=== PATIENT | male | born 1960 | race Two or more races ===

== ENCOUNTER 2017-02-18 14:44 | Emergency (ER) | payer SELFPAY ==
[~2017-02-18] VITALS: Ht 180.3 cm; Wt 83.0 kg
[2017-02-18 15:10] VITALS: BP 158/104
[2017-02-18] MEDS ORDERED: KETOROLAC TROMETH 60MG/2ML VIAL IM ONE (16:30)
== END 2017-02-18 17:15 | disposition home or self-care (01) ==
LOC: ER 14:44
DX: S22.42XA Multiple fractures of ribs, left side, initial encounter for closed fracture (principal); W11.XXXA Fall on and from ladder, initial encounter; Y93.89 Activity, other specified; Y92.89 Other specified places as the place of occurrence of the external cause; Y99.8 Other external cause status
CPT/HCPCS: 71101; 96372; 99284; J1885

== ENCOUNTER 2017-05-15 00:13 | Emergency (ER) | payer SELFPAY ==
[~2017-05-15] VITALS: Ht 180.3 cm; Wt 89.4 kg
[2017-05-15] MEDS ORDERED: cloNIDine HCL 0.1 MG TAB PO ONE (00:30)
[2017-05-15 01:54] VITALS: BP 124/90
== END 2017-05-15 02:44 | disposition home or self-care (01) ==
LOC: ER 00:13
DX: S00.01XA Abrasion of scalp, initial encounter (principal); I10 Essential (primary) hypertension; Z91.14 Patient's other noncompliance with medication regimen; W18.39XA Other fall on same level, initial encounter; Y93.89 Activity, other specified; Y92.89 Other specified places as the place of occurrence of the external cause; Y99.8 Other external cause status
CPT/HCPCS: 70450; 99284; J7030

== ENCOUNTER 2017-08-14 14:55 | Inpatient (IN) | payer SELFPAY ==
[2017-08-13 23:15] VITALS: BP 180/100
[~2017-08-14] VITALS: Ht 180.3 cm; Wt 48.8 kg
[2017-08-14 15:19] LABS: Basophils # (auto) 0 uL; Basophils % (auto) 0.3 % (0.0-2.0); Eosinophils # (auto) 0.1 uL; Eosinophils % (auto) 0.7 % (0.0-7.0); Hematocrit 47.8 % (41.0-53.0); Hemoglobin 16.5 g/dL (13.5-17.5); Lymphocytes # (auto) 1.5 uL; Lymphocytes % (auto) 19.5 % (10.0-50.0); Mean Corpuscular Hemoglobin 34.7 pg (28.0-32.0); Mean Corpuscular Hgb Conc. 34.5 g/dL (32.0-36.0); Mean Corpuscular Volume 100.6 fL (80.0-100.0); Monocytes # (auto) 0.7 uL; Monocytes % (auto) 9.7 % (0.0-12.0); Neutrophils # (auto) 5.2 uL; Neutrophils % (auto) 69.8 % (37.0-80.0); Nucleated Red Blood Cells % 0.1 %; Platelet Count (auto) 174 10^3/uL (140-450); Red Cell Distribution Width 13.4 % (11.8-14.3); White Blood Cell 7.5 10^3/uL (4.4-10.8)
[2017-08-14 15:43] LABS: Albumin 3.5 g/dL (3.4-5.0); Alkaline Phosphatase 99 U/L (45-117); Anion Gap 14 (5-15); Aspartate Aminotransferase 85 U/L (15-37); BUN/Creatinine Ratio 12.1; Bilirubin, Total 0.6 mg/dL (0.2-1.0); Blood Urea Nitrogen 11 mg/dL (7-18); Calcium 8.2 mg/dL (8.5-10.1); Carbon Dioxide 21 mmol/L (21-32); Chloride 100 mmol/L (98-107); GFR African American 111 mL/min; GFR Non-African American 92 mL/min; Glucose 92 mg/dL (74-106); Magnesium 2.3 mg/dL (1.6-2.6); Potassium 3.8 mmol/L (3.5-5.1); Sodium 135 mmol/L (136-145); Total Protein 7.3 g/dL (6.4-8.2)
[2017-08-14] MEDS ORDERED: ONDANSETRON HCL 4 MG/2 ML VIAL IV ONE (17:45)
[2017-08-14] MEDS ORDERED: ASPirin 81 mg TAB PO ONE (17:45)
[2017-08-14] MEDS ORDERED: SODIUM CHLORIDE 0.9% 1,000 ML IV ONE (17:45)
[2017-08-14] MEDS ORDERED: HYDROmorphone HCL 2 MG/ML VL IV ONE (17:45)
[2017-08-14] MEDS ORDERED: ACETAMINOPHEN 325 MG TAB PO PRN (21:45)
[2017-08-14] MEDS ORDERED: MORPHINE SULF INJ 2 MG/ML SYRINGE 1ML IV PRN (21:45)
[2017-08-14] MEDS ORDERED: TEMAZEPAM 15 MG CAP PO PRN (21:45)
[2017-08-14] MEDS ORDERED: ONDANSETRON HCL 4 MG/2 ML VIAL IV PRN (21:45)
[2017-08-14] MEDS ORDERED: HYDROmorphone HCL 2 MG/ML VL IV PRN (21:45)
[2017-08-14] MEDS ORDERED: HYDROcodone-ACET 5/325MG TAB PO PRN (21:45)
[2017-08-14] MEDS ORDERED: NITROGLYCERIN 0.4 MG SL TAB SL PRN (21:45)
[2017-08-14] MEDS: FAMOTIDINE 20 MG TAB PO SCH (22:17)
[2017-08-14] MEDS: METOPROLOL TARTRATE 25 MG TAB PO SCH (22:17)
[2017-08-14 23:00] VITALS: BP 180/100
[2017-08-14] MEDS: chlordiazePOXIDE HCL 5 MG CAP PO PRN (23:21)
[2017-08-15 05:00] VITALS: BP 128/85
[2017-08-15 05:51] LABS: Basophils # (auto) 0 uL; Basophils % (auto) 0.2 % (0.0-2.0); Eosinophils # (auto) 0.1 uL; Eosinophils % (auto) 1.2 % (0.0-7.0); Hematocrit 43.9 % (41.0-53.0); Hemoglobin 15.1 g/dL (13.5-17.5); Lymphocytes # (auto) 1.3 uL; Mean Corpuscular Hemoglobin 34.5 pg (28.0-32.0); Mean Corpuscular Hgb Conc. 34.4 g/dL (32.0-36.0); Mean Corpuscular Volume 100.3 fL (80.0-100.0); Mean Platelet Volume 9.4 fL (6.9-10.8); Monocytes # (auto) 0.7 uL; Monocytes % (auto) 10.1 % (0.0-12.0); Neutrophils # (auto) 5.2 uL; Neutrophils % (auto) 70.5 % (37.0-80.0); Platelet Count (auto) 150 10^3/uL (140-450); Red Cell Distribution Width 13.5 % (11.8-14.3); White Blood Cell 7.4 10^3/uL (4.4-10.8)
[2017-08-15 05:59] LABS: BUN/Creatinine Ratio 12.4; Potassium 4.4 mmol/L (3.5-5.1)
[2017-08-15 06:00] LABS: Albumin 2.8 g/dL (3.4-5.0); Calcium 8.5 mg/dL (8.5-10.1)
[2017-08-15 06:03] LABS: Bilirubin, Total 0.8 mg/dL (0.2-1.0)
[2017-08-15 09:06] VITALS: BP 161/101
[2017-08-15] MEDS ORDERED: ASPirin 81 mg TAB PO SCH (10:00)
[2017-08-15] MEDS: METOPROLOL TARTRATE 25 MG TAB PO SCH (10:56)
[2017-08-15] MEDS: FAMOTIDINE 20 MG TAB PO SCH ×2 (10:58→23:54)
[2017-08-15] MEDS: ENOXAPARIN SOD 40 MG/0.4 ML SYRINGE SC SCH (10:58)
[2017-08-15] MEDS: chlordiazePOXIDE HCL 5 MG CAP PO PRN (11:03)
[2017-08-15 13:07] VITALS: BP 156/93
[2017-08-15] MEDS ORDERED: METOPROLOL TARTRATE 25 MG TAB PO ONE (13:15)
[2017-08-15] MEDS ORDERED: cloNIDine HCL 0.1 MG TAB PO PRN (13:15)
[2017-08-15] MEDS ORDERED: LISINOPRIL 20 MG TAB PO ONE ×2 (14:15)
[2017-08-15] MEDS ORDERED: THIAMINE HCL 100 MG TAB PO ONE (14:15)
[2017-08-15] MEDS ORDERED: FOLIC ACID 1 MG TAB PO ONE (14:15)
[2017-08-15] MEDS ORDERED: MULTIPLE VITAMIN TAB PO ONE (14:15)
[2017-08-15] MEDS: chlordiazePOXIDE HCL 25 MG CAP PO SCH ×3 (14:18→23:54)
[2017-08-15 17:05] VITALS: BP 122/83
[2017-08-15 21:45] VITALS: BP 122/80
[2017-08-15] MEDS: METOPROLOL TARTRATE 50 MG TAB PO SCH (23:57)
[2017-08-16 04:56] VITALS: BP 115/75
[2017-08-16] MEDS: chlordiazePOXIDE HCL 25 MG CAP PO SCH ×4 (05:36→23:29)
[2017-08-16 05:59] LABS: Albumin 2.7 g/dL (3.4-5.0); Bilirubin, Direct 0.2 mg/dL (0-0.2); Bilirubin, Total 0.7 mg/dL (0.2-1.0); Total Protein 5.8 g/dL (6.4-8.2)
[2017-08-16 09:00] VITALS: BP 130/84
[2017-08-16] MEDS: METOPROLOL TARTRATE 50 MG TAB PO SCH ×2 (10:00→21:58)
[2017-08-16] MEDS: ENOXAPARIN SOD 40 MG/0.4 ML SYRINGE SC SCH (10:11)
[2017-08-16] MEDS: LISINOPRIL 20 MG TAB PO SCH (10:11)
[2017-08-16] MEDS: FAMOTIDINE 20 MG TAB PO SCH ×2 (10:11→21:57)
[2017-08-16] MEDS: THIAMINE HCL 100 MG TAB PO SCH (10:12)
[2017-08-16] MEDS: ASPirin 81 mg TAB PO SCH (10:12)
[2017-08-16] MEDS: FOLIC ACID 1 MG TAB PO SCH (10:12)
[2017-08-16] MEDS: MULTIPLE VITAMIN TAB PO SCH (10:12)
[2017-08-16 13:00] VITALS: BP 122/76
[2017-08-16 17:00] VITALS: BP 111/60
[2017-08-16 22:00] VITALS: BP 130/69
[2017-08-17 05:00] VITALS: BP 115/80
[2017-08-17] MEDS: chlordiazePOXIDE HCL 25 MG CAP PO SCH ×3 (05:50→17:39)
[2017-08-17] MEDS: ENOXAPARIN SOD 40 MG/0.4 ML SYRINGE SC SCH (09:32)
[2017-08-17] MEDS: ASPirin 81 mg TAB PO SCH (09:33)
[2017-08-17] MEDS: FAMOTIDINE 20 MG TAB PO SCH ×2 (09:33→21:45)
[2017-08-17] MEDS: LISINOPRIL 20 MG TAB PO SCH (09:33)
[2017-08-17] MEDS: MULTIPLE VITAMIN TAB PO SCH (09:33)
[2017-08-17] MEDS: THIAMINE HCL 100 MG TAB PO SCH (09:33)
[2017-08-17] MEDS: FOLIC ACID 1 MG TAB PO SCH (09:33)
[2017-08-17] MEDS: METOPROLOL TARTRATE 50 MG TAB PO SCH ×2 (09:33→21:33)
[2017-08-17 09:46] VITALS: BP 122/77
[2017-08-17 14:11] VITALS: BP 130/78
[2017-08-17 17:00] VITALS: BP 128/73
[2017-08-17 21:35] VITALS: BP 111/75
[2017-08-17] MEDS: ENOXAPARIN SOD 60 MG/0.6 ML SYRINGE SC SCH (21:45)
[2017-08-17 22:04] LABS: Albumin 2.8 g/dL (3.4-5.0); BUN/Creatinine Ratio 12.7; Bilirubin, Total 0.4 mg/dL (0.2-1.0); Calcium 8.6 mg/dL (8.5-10.1); Potassium 3.9 mmol/L (3.5-5.1); Total Protein 6.3 g/dL (6.4-8.2)
[2017-08-18] MEDS: chlordiazePOXIDE HCL 25 MG CAP PO SCH ×5 (00:08→23:22)
[2017-08-18 05:37] VITALS: BP 117/76
[2017-08-18] MEDS ORDERED: IOHEXOL 350 MG/ML 100ML IJ ONE (08:31)
[2017-08-18 09:00] VITALS: BP 116/69
[2017-08-18 10:15] VITALS: BP 140/90
[2017-08-18] MEDS: ASPirin 81 mg TAB PO SCH (11:33)
[2017-08-18] MEDS: MULTIPLE VITAMIN TAB PO SCH (11:33)
[2017-08-18] MEDS: ENOXAPARIN SOD 60 MG/0.6 ML SYRINGE SC SCH ×2 (11:33→21:52)
[2017-08-18] MEDS: FAMOTIDINE 20 MG TAB PO SCH ×2 (11:34→21:52)
[2017-08-18] MEDS: THIAMINE HCL 100 MG TAB PO SCH (11:34)
[2017-08-18] MEDS: FOLIC ACID 1 MG TAB PO SCH (11:34)
[2017-08-18] MEDS: LISINOPRIL 20 MG TAB PO SCH (11:35)
[2017-08-18] MEDS: METOPROLOL TARTRATE 50 MG TAB PO SCH ×2 (11:36→21:48)
[2017-08-18 11:58] LABS: Hepatitis B Surface Antibody Negative
[2017-08-18 13:00] VITALS: BP 127/90
[2017-08-18 16:19] LABS: INR 0.99 (0.9-1.15); Partial Thromboplastin Time 30.6 sec (22.64-33.71); Prothrombin Time 10.8 sec (9.37-12.3)
[2017-08-18 17:00] VITALS: BP 103/67
[2017-08-18] MEDS ORDERED: WARFARIN SODIUM 10 MG TAB PO ONE (17:00)
[2017-08-18 22:00] VITALS: BP 108/68
[2017-08-19 05:00] VITALS: BP 103/70
[2017-08-19] MEDS: chlordiazePOXIDE HCL 25 MG CAP PO SCH ×4 (05:47→23:49)
[2017-08-19 05:50] LABS: Basophils # (auto) 0 uL; Eosinophils # (auto) 0.2 uL; Monocytes # (auto) 0.9 uL; Monocytes % (auto) 11.1 % (0.0-12.0); Nucleated Red Blood Cells % 0.1 %
[2017-08-19 05:56] LABS: Basophils % (auto) 0.2 % (0.0-2.0); Eosinophils % (auto) 2.6 % (0.0-7.0); Hematocrit 45.9 % (41.0-53.0); Hemoglobin 15.7 g/dL (13.5-17.5); Lymphocytes # (auto) 1.3 uL; Lymphocytes % (auto) 16.9 % (10.0-50.0); Mean Corpuscular Hemoglobin 34.3 pg (28.0-32.0); Mean Corpuscular Hgb Conc. 34.2 g/dL (32.0-36.0); Mean Corpuscular Volume 100.2 fL (80.0-100.0); Mean Platelet Volume 9.2 fL (6.9-10.8); Neutrophils # (auto) 5.4 uL; Neutrophils % (auto) 69.2 % (37.0-80.0); Platelet Count (auto) 157 10^3/uL (140-450); Red Cell Distribution Width 13.4 % (11.8-14.3); White Blood Cell 7.8 10^3/uL (4.4-10.8)
[2017-08-19 07:31] LABS: INR 0.98 (0.9-1.15); Partial Thromboplastin Time 29.4 sec (22.64-33.71); Prothrombin Time 10.7 sec (9.37-12.3)
[2017-08-19 08:00] VITALS: BP 106/66
[2017-08-19 09:00] VITALS: BP 106/66
[2017-08-19] MEDS: METOPROLOL TARTRATE 50 MG TAB PO SCH ×2 (10:00→21:29)
[2017-08-19] MEDS: LISINOPRIL 20 MG TAB PO SCH (10:00)
[2017-08-19] MEDS: THIAMINE HCL 100 MG TAB PO SCH (10:20)
[2017-08-19] MEDS: ASPirin 81 mg TAB PO SCH (10:20)
[2017-08-19] MEDS: ENOXAPARIN SOD 60 MG/0.6 ML SYRINGE SC SCH ×2 (10:20→21:30)
[2017-08-19] MEDS: MULTIPLE VITAMIN TAB PO SCH (10:20)
[2017-08-19] MEDS: FAMOTIDINE 20 MG TAB PO SCH ×2 (10:20→21:29)
[2017-08-19] MEDS: FOLIC ACID 1 MG TAB PO SCH (10:20)
[2017-08-19 13:00] VITALS: BP 129/80
[2017-08-19 16:29] VITALS: BP 132/96
[2017-08-19] MEDS ORDERED: WARFARIN SODIUM 10 MG TAB PO ONE ×2 (17:00)
[2017-08-19] MEDS: BOOST PLUS 8 ounce PO SCH (18:37)
[2017-08-19 21:39] VITALS: BP 126/84
[2017-08-20 05:09] VITALS: BP 155/94
[2017-08-20 05:10] VITALS: BP 106/66
[2017-08-20] MEDS: chlordiazePOXIDE HCL 25 MG CAP PO SCH ×4 (05:51→23:47)
[2017-08-20 06:59] LABS: INR 1.06 (0.9-1.15); Partial Thromboplastin Time 31.3 sec (22.64-33.71); Prothrombin Time 11.6 sec (9.37-12.3)
[2017-08-20 09:00] VITALS: BP 111/65
[2017-08-20] MEDS: BOOST PLUS 8 ounce PO SCH ×2 (09:07→17:47)
[2017-08-20] MEDS: ENOXAPARIN SOD 60 MG/0.6 ML SYRINGE SC SCH ×2 (09:43→21:39)
[2017-08-20] MEDS: ASPirin 81 mg TAB PO SCH (09:43)
[2017-08-20] MEDS: THIAMINE HCL 100 MG TAB PO SCH (09:44)
[2017-08-20] MEDS: FOLIC ACID 1 MG TAB PO SCH (09:44)
[2017-08-20] MEDS: MULTIPLE VITAMIN TAB PO SCH (09:44)
[2017-08-20] MEDS: LISINOPRIL 20 MG TAB PO SCH (09:45)
[2017-08-20] MEDS: METOPROLOL TARTRATE 50 MG TAB PO SCH ×2 (09:46→21:39)
[2017-08-20] MEDS: FAMOTIDINE 20 MG TAB PO SCH ×2 (10:00→21:39)
[2017-08-20 13:00] VITALS: BP 117/65
[2017-08-20 14:56] LABS: INR 1.09 (0.9-1.15); Partial Thromboplastin Time 33.8 sec (22.64-33.71); Prothrombin Time 11.9 sec (9.37-12.3)
[2017-08-20] MEDS ORDERED: WARFARIN SODIUM 10 MG TAB PO ONE (17:00)
[2017-08-20 17:02] VITALS: BP 137/73
[2017-08-20 22:00] VITALS: BP 127/66
[2017-08-21 05:00] VITALS: BP 105/67
[2017-08-21] MEDS: chlordiazePOXIDE HCL 25 MG CAP PO SCH ×3 (05:40→18:24)
[2017-08-21 06:44] LABS: INR 1.22 (0.9-1.15); Partial Thromboplastin Time 33.4 sec (22.64-33.71); Prothrombin Time 13.3 sec (9.37-12.3)
[2017-08-21 06:50] LABS: Albumin 2.6 g/dL (3.4-5.0); Calcium 8.6 mg/dL (8.5-10.1); Potassium 4.1 mmol/L (3.5-5.1)
[2017-08-21 06:55] LABS: Bilirubin, Total 0.3 mg/dL (0.2-1.0); Total Protein 6.2 g/dL (6.4-8.2)
[2017-08-21] MEDS: BOOST PLUS 8 ounce PO SCH ×2 (08:09→18:24)
[2017-08-21 09:00] VITALS: BP 100/62
[2017-08-21 09:08] LABS: Protein S Antigen Free 104 % (57-157); Proten S Antigen Total 70 % (60-150)
[2017-08-21] MEDS: FOLIC ACID 1 MG TAB PO SCH (09:44)
[2017-08-21] MEDS: MULTIPLE VITAMIN TAB PO SCH (09:44)
[2017-08-21] MEDS: FAMOTIDINE 20 MG TAB PO SCH ×2 (09:44→21:21)
[2017-08-21] MEDS: LISINOPRIL 20 MG TAB PO SCH (09:44)
[2017-08-21] MEDS: ASPirin 81 mg TAB PO SCH (09:44)
[2017-08-21] MEDS: ENOXAPARIN SOD 60 MG/0.6 ML SYRINGE SC SCH ×2 (09:44→21:21)
[2017-08-21] MEDS: THIAMINE HCL 100 MG TAB PO SCH (09:45)
[2017-08-21] MEDS: METOPROLOL TARTRATE 50 MG TAB PO SCH ×2 (09:45→21:21)
[2017-08-21 17:00] VITALS: BP 126/74
[2017-08-21] MEDS ORDERED: WARFARIN SODIUM 10 MG TAB PO ONE (19:45)
[2017-08-21 21:53] VITALS: BP 109/62
[2017-08-22] MEDS: chlordiazePOXIDE HCL 25 MG CAP PO SCH ×5 (01:05→23:37)
[2017-08-22 03:06] LABS: Anticardiolipin IgM Antibody <9 MPL U/mL (0-12)
[2017-08-22 05:03] VITALS: BP 114/66
[2017-08-22 05:57] LABS: INR 1.23 (0.9-1.15); Partial Thromboplastin Time 34.7 sec (22.64-33.71); Prothrombin Time 13.4 sec (9.37-12.3)
[2017-08-22] MEDS: BOOST PLUS 8 ounce PO SCH ×2 (08:23→18:12)
[2017-08-22 09:10] VITALS: BP 120/73
[2017-08-22] MEDS: ENOXAPARIN SOD 60 MG/0.6 ML SYRINGE SC SCH ×2 (10:44→21:54)
[2017-08-22] MEDS: MULTIPLE VITAMIN TAB PO SCH (10:45)
[2017-08-22] MEDS: FOLIC ACID 1 MG TAB PO SCH (10:45)
[2017-08-22] MEDS: LISINOPRIL 20 MG TAB PO SCH (10:45)
[2017-08-22] MEDS: ASPirin 81 mg TAB PO SCH (10:45)
[2017-08-22] MEDS: FAMOTIDINE 20 MG TAB PO SCH ×2 (10:45→21:54)
[2017-08-22] MEDS: METOPROLOL TARTRATE 50 MG TAB PO SCH ×2 (10:46→21:51)
[2017-08-22] MEDS: THIAMINE HCL 100 MG TAB PO SCH (10:47)
[2017-08-22 13:09] VITALS: BP 111/86
[2017-08-22] MEDS ORDERED: WARFARIN SODIUM 10 MG TAB PO ONE (17:00)
[2017-08-22 17:04] VITALS: BP 107/80
[2017-08-22] MEDS ORDERED: WARFARIN SODIUM 2.5 MG TAB PO ONE (18:00)
[2017-08-22 22:00] VITALS: BP 97/63
[2017-08-23 05:01] VITALS: BP 105/64
[2017-08-23] MEDS: chlordiazePOXIDE HCL 25 MG CAP PO SCH ×3 (05:52→18:19)
[2017-08-23 05:54] LABS: Basophils # (auto) 0 uL; Basophils % (auto) 0.6 % (0.0-2.0); Eosinophils # (auto) 0.2 uL; Hemoglobin 14.4 g/dL (13.5-17.5); Monocytes # (auto) 0.7 uL; Monocytes % (auto) 11.2 % (0.0-12.0); Red Cell Distribution Width 13.1 % (11.8-14.3); White Blood Cell 6.1 10^3/uL (4.4-10.8)
[2017-08-23 05:56] LABS: Hematocrit 41.7 % (41.0-53.0); Lymphocytes # (auto) 1.9 uL; Lymphocytes % (auto) 30.5 % (10.0-50.0); Mean Corpuscular Hemoglobin 34.5 pg (28.0-32.0); Mean Corpuscular Hgb Conc. 34.4 g/dL (32.0-36.0); Mean Corpuscular Volume 100.3 fL (80.0-100.0); Mean Platelet Volume 9.3 fL (6.9-10.8); Neutrophils # (auto) 3.3 uL; Neutrophils % (auto) 53.7 % (37.0-80.0); Nucleated Red Blood Cells % 0.1 %; Platelet Count (auto) 210 10^3/uL (140-450)
[2017-08-23 06:19] LABS: INR 1.41 (0.9-1.15); Partial Thromboplastin Time 35.6 sec (22.64-33.71); Prothrombin Time 15.4 sec (9.37-12.3)
[2017-08-23] MEDS: BOOST PLUS 8 ounce PO SCH ×2 (08:17→18:19)
[2017-08-23 09:00] VITALS: BP 105/66
[2017-08-23] MEDS: LISINOPRIL 20 MG TAB PO SCH (10:00)
[2017-08-23] MEDS: FAMOTIDINE 20 MG TAB PO SCH ×2 (10:35→22:12)
[2017-08-23] MEDS: MULTIPLE VITAMIN TAB PO SCH (10:35)
[2017-08-23] MEDS: ENOXAPARIN SOD 60 MG/0.6 ML SYRINGE SC SCH ×2 (10:35→22:12)
[2017-08-23] MEDS: FOLIC ACID 1 MG TAB PO SCH (10:35)
[2017-08-23] MEDS: METOPROLOL TARTRATE 50 MG TAB PO SCH (10:36)
[2017-08-23] MEDS: THIAMINE HCL 100 MG TAB PO SCH (10:36)
[2017-08-23] MEDS: ASPirin 81 mg TAB PO SCH (10:36)
[2017-08-23 13:00] VITALS: BP 106/73
[2017-08-23 16:58] VITALS: BP 152/73
[2017-08-23] MEDS ORDERED: WARFARIN SODIUM 2.5 MG TAB PO ONE (17:00)
[2017-08-23 20:00] VITALS: BP 102/63
[2017-08-23 22:00] VITALS: BP 102/63
[2017-08-23] MEDS: METOPROLOL TARTRATE 25 MG TAB PO SCH (22:00)
[2017-08-24] MEDS: chlordiazePOXIDE HCL 25 MG CAP PO SCH ×4 (00:47→17:43)
[2017-08-24 05:00] VITALS: BP 106/66
[2017-08-24 08:00] VITALS: BP 105/61
[2017-08-24] MEDS: BOOST PLUS 8 ounce PO SCH ×2 (08:09→17:48)
[2017-08-24 08:33] LABS: INR 1.59 (0.9-1.15); Prothrombin Time 17.4 sec (9.37-12.3)
[2017-08-24] MEDS: METOPROLOL TARTRATE 25 MG TAB PO SCH ×2 (10:00→21:45)
[2017-08-24] MEDS: MULTIPLE VITAMIN TAB PO SCH (11:00)
[2017-08-24] MEDS: FAMOTIDINE 20 MG TAB PO SCH ×2 (11:01→21:42)
[2017-08-24] MEDS: LISINOPRIL 20 MG TAB PO SCH (11:01)
[2017-08-24] MEDS: THIAMINE HCL 100 MG TAB PO SCH (11:02)
[2017-08-24] MEDS: ENOXAPARIN SOD 60 MG/0.6 ML SYRINGE SC SCH ×2 (11:02→21:42)
[2017-08-24] MEDS: ASPirin 81 mg TAB PO SCH (11:02)
[2017-08-24] MEDS: FOLIC ACID 1 MG TAB PO SCH (11:02)
[2017-08-24 12:00] VITALS: BP 119/77
[2017-08-24 17:00] VITALS: BP 102/67
[2017-08-24] MEDS ORDERED: WARFARIN SODIUM 2.5 MG TAB PO ONE (17:00)
[2017-08-24 22:00] VITALS: BP 98/62
[2017-08-25 05:00] VITALS: BP 100/58
[2017-08-25] MEDS: chlordiazePOXIDE HCL 25 MG CAP PO SCH ×4 (06:01→17:03)
[2017-08-25 06:31] LABS: Basophils # (auto) 0 uL; Eosinophils # (auto) 0.2 uL; Neutrophils # (auto) 3.2 uL
[2017-08-25 06:34] LABS: Basophils % (auto) 0.7 % (0.0-2.0); Eosinophils % (auto) 3.7 % (0.0-7.0); Hematocrit 44.6 % (41.0-53.0); Hemoglobin 15.2 g/dL (13.5-17.5); Mean Corpuscular Hgb Conc. 34.1 g/dL (32.0-36.0); Mean Corpuscular Volume 99.9 fL (80.0-100.0); Mean Platelet Volume 8.7 fL (6.9-10.8); Monocytes # (auto) 0.5 uL; Neutrophils % (auto) 52.6 % (37.0-80.0); Nucleated Red Blood Cells % 0.2 %; Platelet Count (auto) 229 10^3/uL (140-450); Red Cell Distribution Width 13.1 % (11.8-14.3)
[2017-08-25 06:45] LABS: INR 1.87 (0.9-1.15); Prothrombin Time 20.5 sec (9.37-12.3)
[2017-08-25 07:07] LABS: Partial Thromboplastin Time 38.5 sec (22.64-33.71)
[2017-08-25] MEDS: BOOST PLUS 8 ounce PO SCH ×2 (08:06→18:09)
[2017-08-25 09:00] VITALS: BP 109/72
[2017-08-25] MEDS: LISINOPRIL 20 MG TAB PO SCH (10:00)
[2017-08-25] MEDS: ASPirin 81 mg TAB PO SCH (11:12)
[2017-08-25] MEDS: ENOXAPARIN SOD 60 MG/0.6 ML SYRINGE SC SCH ×2 (11:12→22:21)
[2017-08-25] MEDS: FAMOTIDINE 20 MG TAB PO SCH ×2 (11:13→22:21)
[2017-08-25] MEDS: FOLIC ACID 1 MG TAB PO SCH (11:13)
[2017-08-25] MEDS: MULTIPLE VITAMIN TAB PO SCH (11:13)
[2017-08-25] MEDS: THIAMINE HCL 100 MG TAB PO SCH (11:14)
[2017-08-25] MEDS: METOPROLOL TARTRATE 25 MG TAB PO SCH ×2 (11:15→22:00)
[2017-08-25 13:00] VITALS: BP 120/80
[2017-08-25 14:49] LABS: INR 1.88 (0.9-1.15); Partial Thromboplastin Time 41.9 sec (22.64-33.71); Prothrombin Time 20.6 sec (9.37-12.3)
[2017-08-25 16:59] VITALS: BP 126/73
[2017-08-25] MEDS ORDERED: WARFARIN SODIUM 2.5 MG TAB PO ONE ×2 (17:00)
[2017-08-25] MEDS ORDERED: WARFARIN SODIUM 10 MG TAB PO ONE (17:00)
[2017-08-25 22:00] VITALS: BP 130/87
[2017-08-26] MEDS: chlordiazePOXIDE HCL 25 MG CAP PO SCH ×3 (01:02→12:19)
[2017-08-26 05:00] VITALS: BP 109/73
[2017-08-26 07:10] LABS: INR 2.1 (0.9-1.15); Partial Thromboplastin Time 39.2 sec (22.64-33.71); Prothrombin Time 23.1 sec (9.37-12.3)
[2017-08-26] MEDS: BOOST PLUS 8 ounce PO SCH (08:00)
[2017-08-26 09:00] VITALS: BP 118/79
[2017-08-26] MEDS: FOLIC ACID 1 MG TAB PO SCH (10:25)
[2017-08-26] MEDS: MULTIPLE VITAMIN TAB PO SCH (10:25)
[2017-08-26] MEDS: ENOXAPARIN SOD 60 MG/0.6 ML SYRINGE SC SCH (10:25)
[2017-08-26] MEDS: METOPROLOL TARTRATE 25 MG TAB PO SCH (10:26)
[2017-08-26] MEDS: ASPirin 81 mg TAB PO SCH (10:27)
[2017-08-26] MEDS: THIAMINE HCL 100 MG TAB PO SCH (10:27)
[2017-08-26] MEDS: FAMOTIDINE 20 MG TAB PO SCH (10:28)
[2017-08-26] MEDS: LISINOPRIL 20 MG TAB PO SCH (10:28)
[2017-08-26 12:49] VITALS: BP 118/79
[2017-08-26 13:00] VITALS: BP 126/86
[2017-08-26 14:10] LABS: PSA Free 0.31 ng/mL
[2017-08-26] MEDS ORDERED: WARFARIN SODIUM 10 MG TAB PO ONE (17:00)
[2017-08-26] MEDS ORDERED: WARFARIN SODIUM 2.5 MG TAB PO ONE (17:00)
== END 2017-08-26 14:34 | disposition home or self-care (01) | DRG 896 ==
LOC: ER 15:01 → EDUNIT# 15:02 → TELE 15:02 → TELE-WESTW 23:02
PROVIDERS: ADMIT Nurse Practitioner; ATTEND Internal Medicine Pulmonary Disease
DX: F10.239 Alcohol dependence with withdrawal, unspecified (principal); I26.99 Other pulmonary embolism without acute cor pulmonale; E44.0 Moderate protein-calorie malnutrition; E87.1 Hypo-osmolality and hyponatremia; Z68.1 Body mass index [BMI] 19.9 or less, adult; Z71.3 Dietary counseling and surveillance; K70.9 Alcoholic liver disease, unspecified; F17.210 Nicotine dependence, cigarettes, uncomplicated; K40.90 Unilateral inguinal hernia, without obstruction or gangrene, not specified as recurrent; I10 Essential (primary) hypertension; F41.9 Anxiety disorder, unspecified; R09.1 Pleurisy; N50.89 Other specified disorders of the male genital organs; Z91.14 Patient's other noncompliance with medication regimen; Z91.19 Patient's noncompliance with other medical treatment and regimen
CPT/HCPCS: 36415; 71020; 71275; 76705; 76870; 80053; 80061; 80076; 81241; 82105; 83735; 84132; 84154; 84484; 85025; 85301; 85302; 85303; 85305; 85306; 85379; 85610; 85613; 85670; 85705; 85730; 85732; 86147; 86704; 86706; 86708; 86803; 87340; 93005; 93017; 93306; 93970; J2405